=== PATIENT | male | born 1950 | race Caucasian/White ===

== ENCOUNTER → 2025-06-19 | Outpatient (CLI) | payer MEDICARE, SELFPAY ==
--- NOTE | 2025-06-19 14:34 | ART_ITS ---
Reason For Study Reason For Study: PVD Procedure A bilateral lower extremity continuous wave Doppler with analog waveform analysis,segmental pressures,and ankle brachial indexes with exercise. Left Segmental Pressures Left brachial= 106mmHg. Left posterior tibial artery = 129mmHg. Left dorsalis pedis artery = 124mmHg. Left digit = 91 mmHg. The left dorsalis pedis waveforms are triphasic. The left posterior tibial artery waveforms are triphasic. Right Segmental Pressures Right brachial= 105mmHg. Right posterior tibial artery = 135mmHg. Right dorsalis pedis artery = 124mmHg. Right digit = 80 mmHg. The right dorsalis pedis waveforms are triphasic. The right posterior tibial artery waveforms are triphasic. Indices The right ankle brachial index by the dorsalis pedis is 1.17. The right ankle brachial index by the posterior tibial artery is 1.27. The right digital-brachial index is 0.75. The right post exercise ankle brachial index is 1.35. The left ankle brachial index by the dorsalis pedis is 1.17. The left ankle brachial index by the posterior tibial artery is 1.22. The left digital-brachial index is 0.86. The left post exercise ankle brachial index is 1.23. VL/Lower Ext Art Exam w/ Exercise Interpretation Summary Right SHERRI , 1.27 normal. TBI and Doppler/PVR waveforms of the right leg normal at rest. Right lower extremity exhibits normal response to exercise. Left SHERRI 1.22, normal. TBI and Doppler/PVR waveforms of the left leg normal at rest. Left lower extremity exhibits normal response to exercise. Ordering Physician: Jillian Dow Referring Physician: Ted Bales Performed By: Romina Persaud RVT
== END | disposition home or self-care (01) ==
PROVIDERS: Referring Provider Physician Assistant; Visit Provider Physician Assistant
DX: I73.9 Peripheral vascular disease, unspecified (principal)
CPT/HCPCS: 93924